=== PATIENT | male | born 1970 | race Caucasian/White ===

== ENCOUNTER → 2025-02-21 10:11 | Outpatient (REF) | payer OTHER, SELFPAY | LOC: HWRAD 10:11 | PROVIDERS: ATTENDING PHYSICIAN Orthopaedic Surgery Hand Surgery; FAMILY PHYSICIAN Family Medicine | DX: M25.511 Pain in right shoulder (principal) | CPT/HCPCS: 73200 ==

== ENCOUNTER 2025-04-04 06:11 | Day surgery (SDC) | payer OTHER, SELFPAY ==
--- NOTE | 2025-03-13 13:07 | PTCARENOTE ---
Abnormal ECG done 03/13/[address] Guadalupe, no further interventions requested.
[2025-03-13 13:24] VITALS: BMI 27.0
[2025-04-04] VITALS (7 sets, daily range): BP systolic 119–150; BP diastolic 84–98; BMI 27.0
[2025-04-04] MEDS: NORMOSOL-R/PLASMALYTE-A 1000 IV (12:18)
[2025-04-04] MEDS: TYLENOL 650 MG PO (12:18)
--- NOTE | 2025-04-04 12:26 | PTCARENOTE ---
Pt had a vasovagal episode after IV placement at 12:10. Patient became lightheaded, pale, and diaphoretic. Patient laid in supine position. Vital signs obtained and found to be 94/61-HR 62- 18- 98% O2 on room air. in to see patient at
this time and patient started to feel better. VS rechecked and founjd to be 109/66- HR 70-18- 97% on room air. Will continue to monitor.
[2025-04-04] MEDS: CELEBREX 200 MG PO (12:45)
== END 2025-04-04 17:12 | disposition home or self-care (01) ==
LOC: SDS 06:11
PROVIDERS: ATTENDING PHYSICIAN Orthopaedic Surgery Hand Surgery; FAMILY PHYSICIAN Family Medicine
DX: T84.84XA Pain due to internal orthopedic prosthetic devices, implants and grafts, initial encounter (principal); Y83.1 Surgical operation with implant of artificial internal device as the cause of abnormal reaction of the patient, or of later complication, without mention of misadventure at the time of the procedure; S42.201K Unspecified fracture of upper end of right humerus, subsequent encounter for fracture with nonunion; X58.XXXA Exposure to other specified factors, initial encounter
CPT/HCPCS: 20680; 36415; 73060; 76000; 87070; 87075; 87176; 87205; 93005